=== PATIENT | female | born 1995 | race Caucasian/White ===

== ENCOUNTER 2017-04-25 02:41 | Emergency (ER) | payer OTHER ==
[~2017-04-25] VITALS: Ht 170.2 cm; Wt 65.9 kg
[2017-04-25 02:44] VITALS: BP 134/90; TEMP 98.9
[2017-04-25] MEDS ORDERED: NUVARING VAG RING VG (02:47)
[2017-04-25] MEDS ORDERED: ULTRAM 50MG TAB50 MG PO (04:16)
[2017-04-25] MEDS ORDERED: NORCO 325 MG-51 TAB PO (04:16)
[2017-04-25 04:41] VITALS: PULSE 90
== END 2017-04-25 04:30 | disposition home or self-care (01) ==
LOC: COL.ER 02:41
DX: S86.212A Strain of muscle(s) and tendon(s) of anterior muscle group at lower leg level, left leg, initial encounter (principal); S83.005A Unspecified dislocation of left patella, initial encounter; X50.1XXA Overexertion from prolonged static or awkward postures, initial encounter; Y92.414 Local residential or business street as the place of occurrence of the external cause
CPT/HCPCS: L1830